=== PATIENT | male | born 1955 | race Hispanic/Latino ===

== ENCOUNTER 2020-01-08 13:23 | Inpatient (IN) | payer SELFPAY ==
[2020-01-08] MEDS ORDERED: DEXAMETHASONE INJ 4 MG/ML VIAL IV ONE (13:26)
[2020-01-08] MEDS ORDERED: MAGNESIUM SULFATE INJ 2 GM in SODIUM CHLORIDE 0.9% 100ML 100 ML IVPB ONE (13:27)
[2020-01-08] MEDS ORDERED: cefTRIAXone SODIUM 1 GM in SODIUM CHL 0.9% 50ML MIN-BAG+ 50 ML IVPB ONE (13:29)
[2020-01-08] MEDS ORDERED: AZITHROMYCIN IV 500 MG in SODIUM CHLORIDE 0.9% 250ML 250 ML IVPB ONE (13:29)
[2020-01-08] MEDS ORDERED: MAGNESIUM SULFATE PREMIX 2GM 2 GM in PREMIX BAG 1 BAG IVPB ONE (13:30)
--- NOTE | 2020-01-08 13:31 | ED.PDOC ---
History of Present Illness - General Chief Complaint: Respiratory Problem Time Seen by Provider: 01/08/20 13:24 Source: patient, Vital Signs reviewed Additional Information: 64-year-old male patient, Honduran-speaking patient presents to the ER with shortness of breath, patient does have a history of hypertension former smoker social drinker, this patient was diagnosed with COVID and was admitted in this hospital, patient said that he was doing well but then since last night started feeling short of breath. Patient was discharged home with antibiotic with Eliquis Patient is able to speak in long sentences but appears fatigue Initial pulse was 85% on room air and patient was tachycardic as well Patient also has a history of diabePatient is also reporting bilateral lower extremity swelling - History of Present Illness Timing/Duration: week Possible Cause: other - covid infection Improving Factors: nothing Worsening Factors: nothing Associated Symptoms: denies symptoms Respiratory Risk Factors: no cause identified Allergies/Adverse Reactions: Allergies NO KNOWN ALLERGY Allergy (Verified 01/08/20 13:24) Home Medications: Ambulatory Orders Atorvastatin Calcium [Lipitor] 20 mg PO BEDTIME 12/30/19 Lisinopril 5 mg PO DAILY 12/30/19 metFORMIN HCL [Glucophage] 500 mg PO BID 12/30/19 Apixaban [Eliquis] 5 mg PO BID 14 Days tab 12/31/19 Azithromycin Tab [Zithromax Tab] 250 mg PO QD #4 tab 12/31/19 Cefdinir 300 mg PO BID #18 capsule 12/31/19 Dexamethasone [Decadron] 4 mg PO DAILY #9 tab 12/31/19 Review of Systems - Review of Systems Constitutional: States: no symptoms reported EENTM: States: no symptoms reported Respiratory: States: short of breath Cardiology: States: no symptoms reported Gastrointestinal/Abdominal: States: no symptoms reported Genitourinary: States: no symptoms reported Musculoskeletal: States: joint swelling Skin: States: no symptoms reported Neurological: States: no symptoms reported Endocrine: States: no symptoms reported Past Medical History (General) - Patient Medical History Hx Stroke: No Hx of COPD: No Hx Cardiac Disorders: No Hx Hypertension: Yes Hx Diabetes: Yes Hx Cancer: No - Vaccination History Hx Tetanus, Diphtheria Vaccination: No Hx Influenza Vaccination: No Hx Pneumococcal Vaccination: No - Social History Hx Tobacco Use: Yes Hx Alcohol Use: No Hx Substance Use: No Hx Substance Use Treatment: No Hx Depression: No - Female History Patient : No Family Medical History - Family History Mother Family History: Unknown Physical Exam - Physical Exam General Appearance: Alert ENT Exam: normal ENT inspection, hearing grossly normal, TMs normal, pharynx normal, nasal congestion Neck: non-tender, full range of motion, supple, normal inspection, trachea midline, limited range of motion Respiratory: respiratory distress Cardiovascular/Chest: normal peripheral pulses, regular rate, rhythm, no edema, no gallop, no JVD Gastrointestinal/Abdominal: normal bowel sounds, non tender, soft, no organomegaly, no pulsatile mass, abnormal bowel sounds Extremity: normal range of motion, non-tender, normal inspection, no calf tenderness, swelling Neurologic: 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 Patient looks a lot better with oxygen he came in because of shortness of breath he was very fatigued initially and he was saturating at 85% on room air, at this point patient is not needing any BiPAP or endotracheal intubation, obviously since patient is well-known to this facility and has been admitted here in the past for COVID pneumonia I immediately consulted the case with the hospitalist for admission and they agree to take him Give him a dose of Rocephin and Zithromax Per the new standard of care given a dose of steroids and magnesium as well we will keep an eye for any other obvious signs of respiratory deterioration02/18 14:09 Departure - Departure Clinical Impression: COVID-19 Pneumonia Qualifiers: Pneumonia type: due to unspecified organism Laterality: bilateral Lung location: lower lobe of lung Qualified Code(s): J18.9 - Pneumonia, unspecified organism Disposition: Admit Patient Departure Forms: ED Discharge - Pt. Copy, Patient Portal Self Enrollment Referrals: Amy Carbajal NP [Primary Care Provider] - 1-2 Weeks Home Medications: Ambulatory Orders Atorvastatin Calcium [Lipitor] 20 mg PO BEDTIME 12/30/19 Lisinopril 5 mg PO DAILY 12/30/19 metFORMIN HCL [Glucophage] 500 mg PO BID 12/30/19 Apixaban [Eliquis] 5 mg PO BID 14 Days tab 12/31/19 Azithromycin Tab [Zithromax Tab] 250 mg PO QD #4 tab 12/31/19 Cefdinir 300 mg PO BID #18 capsule 12/31/19 Dexamethasone [Decadron] 4 mg PO DAILY #9 tab 12/31/19 Decision To Admit - Decistion To Admit Decision to Admit Reason: Admit from ER Decision to Admit Date: 01/08/20 Decision to Admit Time: 14:09
[2020-01-08] MEDS ORDERED: SODIUM CHL 0.9% 50ML MIN-BAG+ 0 ML IVPB ONE (13:34)
--- NOTE | 2020-01-08 14:24 | RAD ---
: 1955. Technique: Portable AP chest x-ray. Comparison: December 31, 2019 chest x-ray and December 30, [address] will. Clinical history: shortness of breath . Heart size: Heart size is moderately enlarged. Lungs: There is extensive peripheral pulmonary infiltrate that has progressed in the interval. Consistent with viral pneumonia. In the left lower lobe there is interval blurring of the diaphragm contour noted. Pleura: No appreciable pleural effusion. No pneumothorax. Mediastinum and iman: Unremarkable. Skeletal: Unremarkable. Support tubings: None. Impression: 1. Worsening bilateral pneumonia. 2. Cardiomegaly. Electronically signed by: Eugene Fox MD 01/08/2020 2:23 PM CDT
--- NOTE | 2020-01-08 14:45 | HP ---
SUPERVISING PHYSICIAN: Andreas Weaver M.D. CHIEF COMPLAINT: Shortness of breath. HISTORY OF PRESENT ILLNESS: This is a 64 year-old male patient who came to the Emergency Room with shortness of breath. He also has a history of hypertension and was diagnosed with COVID about a week ago. He actually did well after discharge for about a week but last night he started feeling short of breath. He had been taking his medications as well as his Eliquis, but he came to the Emergency Room feeling very fatigued and his initial O2 saturations on room air were 85% and was tachycardic. In the Emergency Room, his vital signs were temperature 97.6 with a heart rate of 100, blood pressure 130/77, respiratory rate 28, and O2 saturation of 86%. Lab studies were done and his WBCs were 11,500 with hemoglobin 15.7, hematocrit 44.7, platelet count 423. Electrolytes were basically within normal limits. Liver function tests were within normal limits. BNP was slightly up at 116. Chest x-ray showed worsening bilateral pneumonia with cardiomegaly. Blood cultures were drawn. The patient was given azithromycin and Rocephin as well as an injection of Decadron. He was also given some magnesium sulfate. He was admitted to the hospital in stable condition. PAST MEDICAL HISTORY: 1. Hypertension. 2. Hyperlipidemia. 3. Diabetes mellitus type 2 on oral therapy. PAST SURGICAL HISTORY: 1. Appendectomy. OUTPATIENT MEDICATIONS: Per the EMR and awaiting verification. ALLERGIES: NO KNOWN DRUG ALLERGIES. FAMILY HISTORY: Unknown. SOCIAL HISTORY: He previously smoked but he quit a few months ago. He denies any ETOH or illicit drug use. REVIEW OF SYSTEMS: GENERAL: Positive for fever. Negative for chills or weight changes. HEENT: Negative for sinus symptoms, ear pain, vision changes or sore throat. RESPIRATORY: Positive for coughing, wheezing and shortness of breath. CARDIAC: Negative for chest pain, palpitations or tachycardia. GASTROINTESTINAL: Negative for nausea, vomiting, diarrhea, although he did say he has been having 2 loose stools per day as well as his stools look dark. MUSCULOSKELETAL: Negative for arthralgias, myalgias. NEUROLOGIC: Negative for headaches or seizures. PHYSICAL EXAMINATION: VITAL SIGNS: Temperature 97.7, heart rate 96, blood pressure 126/70, respiratory rate 20 to 22, O2 saturation 90% on high flow oxygen. GENERAL: This is a 64 year-old male patient sitting up in his hospital bed. He is in mild respiratory distress. HEENT: Normocephalic, atraumatic. Oropharynx is clear. NECK: Supple without mass. RESPIRATORY: Diminished breath sounds throughout with a few scattered rhonchi. He is tachypneic with speaking. CARDIOVASCULAR: Regular rate and rhythm. GASTROINTESTINAL: Abdomen is soft, nondistended, nontender. Bowel sounds are positive. EXTREMITIES: No cyanosis, clubbing or edema. NEUROLOGIC: He is awake and alert, and able to answer questions through the hr recruiter. LABORATORY: Labs and films are as per the history of present illness. ASSESSMENT: 1. Recent admission to the hospital for COVID-19 pneumonia with dehydration and elevated CPK. 2. Hyperlipidemia. 3. Diabetes mellitus type 2. 4. Hypertension. PLAN: The patient has been admitted to the hospital. We will start the pneumonia and COVID protocol. I have continued his Rocephin and azithromycin as well as his Decadron 6 mg daily. I have ordered COVID lab to be done for today and then I have also ordered it for tomorrow. His home medications will be restarted when they are verified, but I will not start his Eliquis as he was taking it which was 5 mg b.i.d. and I will decrease that to 2.5 mg b.i.d. and check a stool for occult blood. He will also have aggressive pulmonary hygiene with Albuterol inhaler both scheduled and p.r.n. Will continue to monitor closely and follow as needed. #[id number] [facility]
[2020-01-08] MEDS ORDERED: ONDANSETRON INJ 4 MG/2 ML VIAL IV PRN (16:16)
[2020-01-08] MEDS ORDERED: ALBUTEROL INHALER 64 PUFF/8GM INH PRN (16:25)
[2020-01-08] MEDS ORDERED: DEXTROSE 50% 25 GM/50 ML SYG IV PRN (16:26)
[2020-01-08] MEDS ORDERED: GLUCAGON INJ 1 MG VIAL SUBCU PRN (16:26)
[2020-01-08] MEDS: IV SET AND CAP CHANGE INJ INJ SCH (16:36)
[2020-01-08] MEDS: INSULIN LISPRO 100 UNITS/ML PEN SUBCU SCH ×2 (16:44→21:44)
[2020-01-08] MEDS: ALBUTEROL INHALER 64 PUFF/8GM INH SCH (20:20)
[2020-01-08] MEDS ORDERED: ENOXAPARIN SODIUM 40 MG/0.4 ML SYG SUBCU SCH (21:00)
[2020-01-08] MEDS ORDERED: metFORMIN HCL 500 MG TAB PO SCH (21:00)
[2020-01-08] MEDS: ATORVASTATIN 20 MG TAB PO SCH (21:17)
[2020-01-08] MEDS: BIFIDOBACTERIUM INFANTIS 4 MG CAP PO SCH (21:17)
[2020-01-08] MEDS: APIXABAN 5 MG TAB PO SCH (21:17)
[2020-01-09] MEDS ORDERED: PANTOPRAZOLE SODIUM IV 40 MG VIAL ONE (05:13)
[2020-01-09] MEDS ORDERED: PANTOPRAZOLE SODIUM IV 40 MG VIAL IV SCH (06:30)
--- NOTE | 2020-01-09 07:39 | RAD ---
EXAM DESCRIPTION: Chest,1 View CLINICAL HISTORY: covid COMPARISON: January 08, 2020 FINDINGS: The cardiomediastinal silhouette is unremarkable. Again seen is patchy airspace consolidation scattered throughout both lungs, unchanged from yesterday's exam. No definite pleural effusion. The lung volumes are within normal range. There is no pneumothorax or acute fracture. IMPRESSION: Patchy areas of airspace consolidation scattered throughout both lungs, unchanged from yesterday's exam. Findings are concerning for viral or other atypical infection including Covid 19 pneumonia. Edema could have a similar appearance. Electronically signed by: Hubert Arce MD 01/09/2020 7:38 AM CDT
[2020-01-09] MEDS: INSULIN LISPRO 100 UNITS/ML PEN SUBCU SCH ×4 (08:24→21:35)
[2020-01-09] MEDS ORDERED: SODIUM CHLORIDE 0.9% 250ML 250 ML ONE (08:29)
[2020-01-09] MEDS ORDERED: AZITHROMYCIN IV 500 MG VIAL IVPB ONE (08:29)
[2020-01-09] MEDS: ALBUTEROL INHALER 64 PUFF/8GM INH SCH ×4 (09:15→20:05)
[2020-01-09] MEDS: cefTRIAXone SODIUM 1 GM in SODIUM CHL 0.9% 50ML MIN-BAG+ 50 ML IVPB SCH (09:33)
[2020-01-09] MEDS: LISINOPRIL 5 MG TAB PO SCH (09:33)
[2020-01-09] MEDS: BIFIDOBACTERIUM INFANTIS 4 MG CAP PO SCH ×2 (09:33→20:55)
[2020-01-09] MEDS: DEXAMETHASONE INJ 10 MG/ML VIAL IV SCH (09:33)
[2020-01-09] MEDS: APIXABAN 5 MG TAB PO SCH ×2 (09:33→20:55)
--- NOTE | 2020-01-09 10:11 | PN ---
SUPERVISING PHYSICIAN: Benedicto Cueto MD DATE: 01/09/20 SUBJECTIVE: The patient states he is breathing okay at this point. He does not complain of any significant shortness of breath, although he is a little bit tachypneic. OBJECTIVE: VITAL SIGNS: Blood pressure 130/66, heart rate 53, respiratory rate 20, temperature 97.8, oxygen saturation 93% on 7 liters via high-flow cannula. GENERAL: Mr. Jasso is a 64-year-old male patient mildly tachypneic at this time. NEUROLOGIC: Alert and oriented. LUNGS: Bibasilar rales. CARDIOVASCULAR: Regular rate and rhythm. Normal S1, S2. ABDOMEN: Soft. Positive bowel sounds. GENITOURINARY: Deferred. EXTREMITIES: Lower extremities with no edema. LABORATORY: Normal white count, negative hemoglobin, normal platelet count. Fibrinogen 731, PTT 28.1, D-dimer 514. Chemistry with an elevated glucose at 148. CRP 16. RADIOLOGY: He still has bilateral patchy airspace consolidations, which is virtually unchanged from exam on 01/07/10. ASSESSMENT: 1. COVID-19 pneumonia. 2. Diabetes mellitus, type 2. 3. Hyperlipidemia. 4. Hypertension. PLAN: At this time, I will continue current antibiotics, dexamethasone as well as Eliquis. There is concern for a possible GI bleed given his dark stools, but we do not have a stool sample yet. The Eliquis is dropped to 2.5 mg b.i.d. I will await the stool results to see if there is any GI bleeding. If not, I will resume the Eliquis to the dose to the full 5 mg b.i.d. I will repeat labs tomorrow as well. [facility][id number] [facility]
[2020-01-09] MEDS: AZITHROMYCIN IV 500 MG in SODIUM CHLORIDE 0.9% 250ML 250 ML IVPB SCH (10:16)
[2020-01-09] MEDS: metFORMIN HCL 500 MG TAB PO SCH (17:08)
[2020-01-09] MEDS: SODIUM CHLORIDE 0.9% (FLUSH) 10 ML SYG IV PRN (20:55)
[2020-01-09] MEDS: ATORVASTATIN 20 MG TAB PO SCH (20:55)
[2020-01-10] MEDS ORDERED: PANTOPRAZOLE SODIUM IV 40 MG VIAL ONE (04:07)
[2020-01-10] MEDS: PANTOPRAZOLE SODIUM TAB 40 MG PO SCH (05:47)
--- NOTE | 2020-01-10 07:09 | RAD ---
EXAM: XR Chest, 1 View CLINICAL HISTORY: The patient is 64 years old and is Male; pneumonia TECHNIQUE: Single upright portable view of the chest. COMPARISON: January 09, 2020 7:32 AM FINDINGS: Lungs: Bilateral pulmonary opacities are not significantly changed. Pleural space: Unremarkable. No pneumothorax. Heart: The cardiac silhouette is enlarged versus artifact of AP technique. Cardiomediastinal silhouette is not significantly changed given the differences in technique. Mediastinum: See above. Bones/joints: The bones and joints are unchanged as visualized. Upper abdomen: No free air in the visualized upper abdomen. IMPRESSION: Bilateral pulmonary opacities are not significantly changed. Electronically signed by: Debra Valdez MD 01/10/2020 7:08 AM CDT
[2020-01-10] MEDS: INSULIN LISPRO 100 UNITS/ML PEN SUBCU SCH ×4 (07:30→21:57)
[2020-01-10] MEDS: metFORMIN HCL 500 MG TAB PO SCH ×2 (07:50→17:45)
[2020-01-10] MEDS: ALBUTEROL INHALER 64 PUFF/8GM INH SCH ×4 (08:30→20:19)
[2020-01-10] MEDS ORDERED: metFORMIN HCL 500 MG TAB ONE (09:26)
[2020-01-10] MEDS: DEXAMETHASONE INJ 10 MG/ML VIAL IV SCH (09:39)
[2020-01-10] MEDS: LISINOPRIL 5 MG TAB PO SCH (09:39)
[2020-01-10] MEDS: cefTRIAXone SODIUM 1 GM in SODIUM CHL 0.9% 50ML MIN-BAG+ 50 ML IVPB SCH (09:39)
[2020-01-10] MEDS: APIXABAN 5 MG TAB PO SCH ×2 (09:39→21:11)
[2020-01-10] MEDS: BIFIDOBACTERIUM INFANTIS 4 MG CAP PO SCH ×2 (09:39→21:11)
[2020-01-10] MEDS: AZITHROMYCIN IV 500 MG in SODIUM CHLORIDE 0.9% 250ML 250 ML IVPB SCH (10:15)
--- NOTE | 2020-01-10 10:55 | PN ---
SUPERVISING PHYSICIAN: Benedicto Cueto MD DATE: 01/10/20 SUBJECTIVE: The patient does not feel short of breath. He states he is breathing okay, however, he has had an increase in his oxygen to 8 liters from 6 liters. Once again, he is not feeling distressed. OBJECTIVE: VITAL SIGNS: Blood pressure 123/66, heart rate 56, respiratory rate 18, temperature 98.1, oxygen saturation 93% on 8 liters. GENERAL: Mr. Jasso is in no active distress at this time. NEUROLOGIC: Alert. LUNGS: Bibasilar rales, no wheezing. CARDIOVASCULAR: Regular rate and rhythm. Normal S1, S2. ABDOMEN: Soft. Positive bowel sounds. GENITOURINARY: Deferred. EXTREMITIES: Lower extremities with no edema. LABORATORY: White blood cell count 9.6, hemoglobin 15.3, hematocrit 44.6, platelet count 425. D-dimer 514, fibrinogen 634, PTT 25.8. Chemistry shows sodium 135, potassium 4.0, chloride 102, CO2 24, BUN 21, creatinine 0.76, glucose 132, calcium 9.0, magnesium 1.9, CRP 6.9. RADIOLOGY: Chest x-ray reveals no acute changes compared to chest x-ray yesterday. ASSESSMENT: 1. COVID-19 pneumonia. 2. Diabetes mellitus, type 2. 3. Hyperlipidemia. 4. Hypertension. PLAN: We will continue current antibiotics and dexamethasone. His hemoglobin is stable, so I am going to increase his Eliquis back to 5 mg b.i.d. His oxygen demand has gone up a little bit. Yesterday, he was on 7 liters, but today he is on 8. He desaturates to the high 80s when it is decreased. I discussed this with the patient. He does not feel anymore short of breath. If his oxygen demand continues to increase, we may need to discuss intubation with the patient. At this point, he is tolerating 8 liters fairly well. [facility][id number] [facility]
[2020-01-10] MEDS: ATORVASTATIN 20 MG TAB PO SCH (21:11)
[2020-01-11] MEDS: PANTOPRAZOLE SODIUM TAB 40 MG PO SCH (05:34)
[2020-01-11] MEDS: metFORMIN HCL 500 MG TAB PO SCH ×2 (07:49→17:08)
[2020-01-11] MEDS: INSULIN LISPRO 100 UNITS/ML PEN SUBCU SCH ×4 (08:29→21:00)
[2020-01-11] MEDS: ALBUTEROL INHALER 64 PUFF/8GM INH SCH ×4 (08:50→20:45)
[2020-01-11] MEDS: LISINOPRIL 5 MG TAB PO SCH (09:18)
[2020-01-11] MEDS: APIXABAN 5 MG TAB PO SCH ×2 (09:18→20:55)
[2020-01-11] MEDS: BIFIDOBACTERIUM INFANTIS 4 MG CAP PO SCH ×2 (09:18→20:55)
[2020-01-11] MEDS: DEXAMETHASONE INJ 10 MG/ML VIAL IV SCH (09:19)
[2020-01-11] MEDS: cefTRIAXone SODIUM 1 GM in SODIUM CHL 0.9% 50ML MIN-BAG+ 50 ML IVPB SCH (09:19)
[2020-01-11] MEDS: AZITHROMYCIN IV 500 MG in SODIUM CHLORIDE 0.9% 250ML 250 ML IVPB SCH (09:59)
--- NOTE | 2020-01-11 10:03 | PN ---
SUPERVISING PHYSICIAN: Benedicto Cueto MD DATE: 01/11/20 SUBJECTIVE: The patient denies any shortness of breath. He does state when he coughs, he gets a little bit short of breath, but normally at rest he is okay. He does not have any loss of appetite, he is eating well. He is getting up and down in the room and sitting in a chair for meals as well. OBJECTIVE: VITAL SIGNS: Blood pressure 146/76, heart rate 50, respiratory rate 20, temperature 98.0, oxygen saturation 95% on 6 liters via nasal cannula. GENERAL: Mr. Jasso is a 64-year-old male patient who is in no active distress at this time. NEUROLOGIC: Alert. LUNGS: Clear to auscultation bilaterally. CARDIOVASCULAR: Regular rate and rhythm. Normal S1, S2. ABDOMEN: Soft. Positive bowel sounds. GENITOURINARY: Deferred. EXTREMITIES: Lower extremities with no edema. Pulses 2+. ASSESSMENT: 1. COVID-19 pneumonia. 2. Diabetes mellitus, type 2. 3. Hyperlipidemia. 4. Hypertension. PLAN: We will continue current antibiotics as well as dexamethasone and Eliquis. We will continue to decrease oxygen as tolerated. We will repeat labs and x-rays tomorrow. [facility][id number] [facility]
[2020-01-11] MEDS: IV SET AND CAP CHANGE INJ INJ SCH (18:06)
[2020-01-11] MEDS: ATORVASTATIN 20 MG TAB PO SCH (20:55)
[2020-01-11] MEDS: SODIUM CHLORIDE 0.9% (FLUSH) 10 ML SYG IV PRN (20:56)
[2020-01-12] MEDS: PANTOPRAZOLE SODIUM TAB 40 MG PO SCH (05:43)
[2020-01-12] MEDS: INSULIN LISPRO 100 UNITS/ML PEN SUBCU SCH ×4 (07:35→21:06)
[2020-01-12] MEDS: metFORMIN HCL 500 MG TAB PO SCH ×2 (07:47→16:38)
--- NOTE | 2020-01-12 08:02 | RAD ---
EXAM DESCRIPTION: Chest,1 View CLINICAL HISTORY: 64 years Male, pneumonia COMPARISON: January 10, 2020 Findings: One view(s)/radiograph(s) Cardiac silhouette and pulmonary vasculature are within normal limits. No pneumothorax. No pleural effusion. Similar to slightly improved bilateral patchy multifocal peripheral infiltrates. No acute osseous abnormality. IMPRESSION: Similar to slightly improved bilateral patchy multifocal peripheral infiltrates. Electronically signed by: Tomy Snow MD 01/12/2020 8:00 AM CDT
[2020-01-12] MEDS: BIFIDOBACTERIUM INFANTIS 4 MG CAP PO SCH ×2 (08:32→20:47)
[2020-01-12] MEDS: DEXAMETHASONE INJ 10 MG/ML VIAL IV SCH (08:32)
[2020-01-12] MEDS: cefTRIAXone SODIUM 1 GM in SODIUM CHL 0.9% 50ML MIN-BAG+ 50 ML IVPB SCH (08:33)
[2020-01-12] MEDS: LISINOPRIL 5 MG TAB PO SCH (08:33)
[2020-01-12] MEDS: SODIUM CHLORIDE 0.9% (FLUSH) 10 ML SYG IV PRN (08:33)
[2020-01-12] MEDS: APIXABAN 5 MG TAB PO SCH ×2 (08:33→20:47)
[2020-01-12] MEDS: ALBUTEROL INHALER 64 PUFF/8GM INH SCH ×4 (08:36→20:50)
[2020-01-12] MEDS: AZITHROMYCIN IV 500 MG in SODIUM CHLORIDE 0.9% 250ML 250 ML IVPB SCH (09:30)
[2020-01-12] MEDS ORDERED: MAGNESIUM HYDROXIDE 30 ML UD PO ONE (09:37)
--- NOTE | 2020-01-12 15:59 | PN ---
SUPERVISING PHYSICIAN: Benedicto Cueto MD DATE: 01/12/20 SUBJECTIVE: The patient is sitting up in his chair in his room, feeling much improved but he is still requiring increased oxygen. He denies chest pain. OBJECTIVE: VITAL SIGNS: Temperature 98.6, heart rate 58, blood pressure 120/63,respiratory rate 17. oxygen saturation 92% on 3 liters nasal cannula. RESPIRATORY: Somewhat diminished throughout but otherwise clear to auscultation. CARDIOVASCULAR: Regular rate and rhythm. NEURO: He is awake and alert. LABORATORY: CBC is unremarkable except he has a left shift on his differential. His ESR is elevated at 32. D-dimer is normal at 211 with a fibrinogen improved to 514. Electrolytes are basically within normal limits. C-reactive protein has improved to 1.2. Chest x-ray shows similar to slightly improved bilateral patchy multifocal peripheral infiltrates. All other labs and films have been reviewed via the EMR ASSESSMENT: 1. COVID-19 pneumonia. 2. Diabetes mellitus, type 2. 3. Hyperlipidemia. 4. Hypertension. PLAN: We will continue present supportive care and continue with the current antibiotics, dexamethasone and Eliquis. The patient can most likely go home and we will see if he will pay for oxygen for a month or so and we will get a billet inspector to convey this to the patient. Otherwise, mostly likely, the patient will have to stay in the hospital until he is weaned off of oxygen. Initially, I had ordered some milk of magnesia but he had a large bowel movement. Hopefully, he can be discharged tomorrow or the next day. [facility][id number] [facility]
[2020-01-12] MEDS: ATORVASTATIN 20 MG TAB PO SCH (20:47)
[2020-01-13] MEDS: PANTOPRAZOLE SODIUM TAB 40 MG PO SCH (06:03)
[2020-01-13] MEDS: metFORMIN HCL 500 MG TAB PO SCH (07:28)
[2020-01-13] MEDS: INSULIN LISPRO 100 UNITS/ML PEN SUBCU SCH ×2 (07:48→12:01)
[2020-01-13] MEDS: cefTRIAXone SODIUM 1 GM in SODIUM CHL 0.9% 50ML MIN-BAG+ 50 ML IVPB SCH (08:51)
[2020-01-13] MEDS: LISINOPRIL 5 MG TAB PO SCH (08:51)
[2020-01-13] MEDS: BIFIDOBACTERIUM INFANTIS 4 MG CAP PO SCH (08:51)
[2020-01-13] MEDS: DEXAMETHASONE INJ 10 MG/ML VIAL IV SCH (08:51)
[2020-01-13] MEDS: APIXABAN 5 MG TAB PO SCH (08:52)
[2020-01-13] MEDS: ALBUTEROL INHALER 64 PUFF/8GM INH SCH (09:10)
[2020-01-13] MEDS: AZITHROMYCIN IV 500 MG in SODIUM CHLORIDE 0.9% 250ML 250 ML IVPB SCH (09:31)
[2020-01-13 13:26] VITALS: BP 130/70; TEMP 98; O2SAT 98
--- NOTE | 2020-01-18 18:07 | DS ---
SUPERVISING PHYSICIAN: Benedicto Cueto M.D. DISCHARGE DIAGNOSIS: 1. COVID-19 pneumonia. 2. Diabetes mellitus, type 2. 3. Hyperlipidemia. 4. Hypertension. HISTORY OF PRESENT ILLNESS: This is a 64 year-old male patient who came to the Emergency Room with shortness of breath. He has a history of hypertension and he was diagnosed with COVID about a week prior to coming to the Emergency Room. He actually did well after discharge for about a week but the night prior to his Emergency Room visit he began feeling some shortness of breath. He had been taking his medications as well as his Eliquis, but he was very fatigued and his O2 saturations on room air were 85% as well as he was tachycardic. In the Emergency Room, his vital signs were temperature 97.6 with a heart rate of 100, blood pressure 130/77, respiratory rate 28, and O2 saturation of 86%. Lab studies were done and his WBCs were 11,500 with hemoglobin 15.7, hematocrit 44.7, platelet count 423. Electrolytes were within normal limits. Liver function tests were within normal limits. BNP was slightly up at 116. Chest x- ray showed worsening bilateral pneumonia with cardiomegaly. Blood cultures were drawn. He was given azithromycin and Rocephin as well as IV Decadron. He was also given magnesium sulfate. He was admitted to the hospital in stable condition. HOSPITAL COURSE: The patient was begun on the pneumonia and COVID protocols. The Rocephin and azithromycin were continued as well as the Decadron 6 mg IV daily. His COVID lab was monitored. His home medications were restarted. There was some concern that he was having some bloody stool and his Eliquis was decreased to 2.5 mg b.i.d. and a stool for occult blood was ordered. He was ordered aggressive pulmonary hygiene with an Albuterol inhaler both scheduled and p.r.n. He clinically improved but his laboratory studies were variable over the next few days. His stool for occult blood was positive but his H&H was stable, so due to his coagulation studies going up he was increased to 5 mg b.i.d. of Eliquis. His clinical picture improved but we were unable to wean the patient off of oxygen. His family decided to pay for 1 month of O2 for home. The oxygen was ordered and it is being delivered to his house,and today he will be discharged in stable condition. LABORATORY: WBCs started at 11,500 and stabilized to 10,600. His H&H was stable at 15.5 and 44.8. Fibrinogen was 624 and went up as high as 731 and on discharge was 514. D-dimer was 372 on admission and went up as high as 514 and on discharge was 211. Sodium was stable at 138, potassium 4, chloride 103, BUN 20, creatinine 0.81, calcium 9.2, magnesium 2. LD was 216 and went down to 180, CRP was 16 and today is 1.2. Stool for occult blood was positive. Blood cultures were negative after 5 days. RADIOLOGY: Final chest x-ray showed similar to slightly improved bilateral patchy multifocal peripheral infiltrates. DISCHARGE PLAN: The patient will be discharged home in stable condition. He will have home O2. He is to resume his previous diet and increase his activity as tolerated. He is to followup with Gayle Carbajal after discharge within the next 1 to 2 weeks. He is to resume his previous medications which include Decadron, Eliquis, azithromycin and Cefdinir. He is to return to the hospital or followup with Gayle Carbajal for any problems or complications. DISCHARGE MEDICATIONS: 1. Metformin. 2. Lisinopril. 3. Lipitor. 4. Cefdinir. 5. Decadron. 6. Azithromycin. 7. Eliquis. 8. Align. #[id number] [facility]
== END 2020-01-13 13:19 | disposition home or self-care (01) | DRG 177 ==
LOC: ER 13:23 → OBSVTOIN 14:44 → MS 14:44
PROVIDERS: ADMIT Nurse Practitioner Acute Care; ATTEND Nurse Practitioner Acute Care
DX: U07.1 COVID-19 (principal); J12.89 Other viral pneumonia; E78.5 Hyperlipidemia, unspecified; I10 Essential (primary) hypertension; R19.5 Other fecal abnormalities; E11.9 Type 2 diabetes mellitus without complications; Z79.01 Long term (current) use of anticoagulants; Z79.84 Long term (current) use of oral hypoglycemic drugs; Z87.891 Personal history of nicotine dependence; Z79.899 Other long term (current) drug therapy